=== PATIENT | male | born 1940 | race Caucasian/White ===

== ENCOUNTER 2018-01-23 09:29 | Emergency (ER) | payer OTHER ==
[~2018-01-23] VITALS: Ht 165.1 cm; Wt 102.5 kg
[2018-01-23] MEDS ORDERED: VERAPAMIL ER100 MG PO (09:38)
[2018-01-23] MEDS ORDERED: ASPIR 8181 MG PO (09:39)
[2018-01-23] MEDS ORDERED: DICLOFENAC POTA50 MG PO (13:03)
== END 2018-01-23 13:09 | disposition home or self-care (01) ==
LOC: ER 09:29
DX: R07.89 Other chest pain (principal); S20.211S Contusion of right front wall of thorax, sequela; W01.198S Fall on same level from slipping, tripping and stumbling with subsequent striking against other object, sequela

== ENCOUNTER 2018-05-14 11:10 | Outpatient (CLI) | payer OTHER ==
[~2018-05-14 11:10] MED LIST: ASPIR 8181 MG PO; DICLOFENAC POTA50 MG PO; VERAPAMIL ER100 MG PO
== END 2018-05-14 11:16 | disposition home or self-care (01) ==
LOC: LAB 11:10
DX: N20.0 Calculus of kidney (principal); Z51.81 Encounter for therapeutic drug level monitoring

== ENCOUNTER 2018-05-15 07:14 | Outpatient (CLI) | payer OTHER | END 2018-05-15 07:29 | disposition home or self-care (01) | LOC: MRI 07:14 | DX: C61 Malignant neoplasm of prostate (principal) | CPT/HCPCS: 72197; A9575 ==